=== PATIENT | male | born 1990 | race Caucasian/White ===

== ENCOUNTER 2019-04-18 18:59 | Emergency (ER) | payer BC ==
[~2019-04-18] VITALS: Ht 165.1 cm; Wt 55.3 kg
[2019-04-18] MEDS ORDERED: KETO10 PO (19:53)
[2019-04-18] MEDS ORDERED: CEPH500 PO (19:53)
[2019-04-18] MEDS ORDERED: Bactrim Ds Tab1 EACH PO (19:53)
== END 2019-04-18 20:15 | disposition home or self-care (01) ==
LOC: ER 18:59
DX: L02.01 Cutaneous abscess of face (principal); L03.211 Cellulitis of face
CPT/HCPCS: 10060; 99283-25

== ENCOUNTER 2019-08-02 07:21 | Emergency (ER) | payer SELFPAY ==
[~2019-08-02] VITALS: Ht 165.1 cm; Wt 59.0 kg
[~2019-08-02 07:21] MED LIST: Bactrim Ds Tab1 EACH PO; CEPH500 PO; KETO10 PO
[2019-08-02] MEDS ORDERED: Acetaminophen-1 EAC1 PO (07:52)
[2019-08-02] MEDS ORDERED: Veetids 500500 MG PO (07:52)
== END 2019-08-02 08:01 | disposition home or self-care (01) ==
LOC: ER 07:21
DX: K04.7 Periapical abscess without sinus (principal)
CPT/HCPCS: 99283